=== PATIENT | female | born 1985 | race Caucasian/White ===

== ENCOUNTER 2021-11-01 20:07 | Emergency (ER) | payer SELFPAY ==
[2021-11-01 23:00] VITALS: BP 185/119; PULSE 78; RESP 16; TEMP 36.8; O2SAT 98; BMI 24.3
[2021-11-01 23:39] LABS: Urine Appearance Cloudy (CLEAR); Urine Color Yellow (Yellow); pH Urine 9 (5-7)
[2021-11-01 23:40] LABS: Add Urine Microscopic? YES; Bacteria Urine TRACE /hpf; Bilirubin Urine Neg (Negative); Blood Urine 2+ (Negative); Glucose Urine UA Norm (Normal); Ketones Urine 2+ (Negative); Leukocyte Esterase Urine Trace (Negative); Mucus Urine 1+ /hpf; Nitrate Urine Negative (Negative); Protein Urine Neg (Negative); RBC Urine 0-4 /hpf (0-2); Squamous Epithelial Cell Urine 0-4 /hpf (0-5); Sulfosalicylic Acid Urine Negative (Negative); Urobilinogen Urine Norm (Negative); WBC Urine 0-4 /hpf (0-5)
[2021-11-01 23:41] LABS: Add Urine Culture? No; Amorphous Sediment Urine 1+ /hpf
[2021-11-02 02:41] LABS: SARS Covid-2 Antigen Negative (Negative)
--- NOTE | 2021-11-02 03:35 | ED_ITS ---
Documented by User: Diallo Paredes MD 11/02/21 06:27 HPI - Nausea/Vomiting/Diarrhea General: Chief complaint: Nausea/Vomiting/Diarrhea Stated complaint: fever,n/v, shaking Time Seen by Provider: 11/02/21 03:35 History of Present Illness: Ms Jauregui is a 36-year-old lady with no significant past medical history presents to the emergency department due to ge neralized illness. She reports 1 week ago being seen and had a urgent care and being prescribed cefdinir for urinary tract infection. Since that time she has had continued daily fevers which have been in the 101 range associated with nausea, vomiting, and generalized malaise. She has been taking antibiotics however occasionally throws them up. Intensity symptoms moderate. Course has been worsening. No other specific changes in health, exacerbating, or alleviating factors identified. Onset (ago): day(s) Description of vomiting: watery Associated nausea: Yes Associated abdominal pain: Yes Severity: moderate Associated symtoms: Reports nausea Review of Systems General: Reports: 10 or more systems reviewed and unremarkable except in HPI and below GI: Reports: nausea PFSH ED PFSH: Medical History (Updated 11/02/21 @ 06:13 by Naima Anna MD) No significant past medical history Surgical History (Updated 11/02/21 @ 04:09 by Diallo Paredes MD) No significant past surgical history Physical Exam Const: COMMON NORMALS: alert GENERAL APPEARANCE: cooperative, well developed and ill appearing (Mildly) HENMT: COMMON NORMALS: normocephalic and atraumatic HEAD & SCALP: normocephalic and atraumatic Eye: COMMON NORMALS: conjunctivae normal CONJUNCTIVA: Yes conjunctivae normal SCLERA: sclerae normal Neck/C-Spine: COMMON NORMALS: supple GENERAL: Yes trachea midline Resp: COMMON NORMALS: clear to auscultation bilaterally EFFORT & INSPECTION: Yes able to speak in complete sentences AUSCULTATION: clear to auscultation bilaterally Cardio: COMMON NORMALS: regular rate and regular rhythm RATE: regular rate RHYTHM: regular rhythm GI: COMMON NORMALS: Soft to palpation PALPATION: Yes Soft to palpation and No Tenderness to palpation present (GI) Extremity: GENERAL: Yes normal exam except as noted and No edema Neuro: COMMON NORMALS: moves all extremities SENSORIUM/ORIENTATION: Yes alert and No Orientation impaired Psych: COMMON NORMALS: mental status grossly normal and Normal thought process present THOUGHT PROCESS: Normal thought process present Course Vital Signs: Vital signs: Vital Signs Temperature 98.3 F 11/01/21 23:00 Pulse Rate 100 11/02/21 06:27 Respiratory Rate 16 11/02/21 06:27 Blood Pressure 177/100 11/02/21 06:27 Pulse Oximetry 96 11/02/21 06:27 Oxygen Delivery Me thod 11/01/21 23:00 MDM - Nausea/Vomiting/Diarrhea Medical Decision Making 36-year-old female presenting with nausea and vomiting with fevers after previous diagnosis of UTI. Patient mildly ill on clinical appearance however vitally satisfactory. No leukocytosis. Mild evidence of dehydration and transaminitis of uncertain etiology. Urinalysis appears to be improving. Given transaminitis plan to proceed with ultrasound. Handed off to Dr. Anna pending completion of ED evaluation. Medical Records I reviewed the patient's medical records. Lab Data I reviewed the patient's lab results. : 11/02/21 04:35 11/02/21 04:35 Laboratory Results WBC 8.6 10^3/uL (4.0-10.0) 11/02/21 04:35 RBC 4.54 10^6/uL (4.1-5.3) 11/02/21 04:35 Hgb 15.5 g/dL (11.5-15.3) H 11/02/21 04:35 Hct 44.6 % (37.0-47.0) 11/02/21 04:35 MCV 98.2 fl (81-99) 11/02/21 04:35 MCH 34.1 pg (28.0-34.0) H 11/02/21 04:35 MCHC 34.8 g/dL (30.0-36.0) 11/02/21 04:35 RDW 13.5 % (12.1-15.1) 11/02/21 04:35 Plt Count 232 10^3/cmm (130-400) 11/02/21 04:35 MPV 9.8 fL (7.4-10.4) 11/02/21 04:35 Neut % (Auto) 63.4 % 11/02/21 04:35 Lymph % (Auto) 25.3 % 11/02/21 04:35 [place] % (Auto) 9.1 % 11/02/21 04:35 Eos % (Auto) 0.8 % 11/02/21 04:35 Baso % (Auto) 1.2 % 11/02/21 04:35 Neut # (Auto) 5.47 10^3/uL (1.8-7.7) 11/02/21 04:35 Lymph # (Auto) 2.2 10^3/uL (0.8-4.8) 11/02/21 04:35 [place] # (Auto) 0.8 10^3/uL (0.2-0.9) 11/02/21 04:35 Eos # (Auto) 0.1 10^3/uL (0.0-0.8) 11/02/21 04:35 Baso # (Auto) 0.1 10^3/uL (0.0-0.1) 11/02/21 04:35 Nucleated RBC % (auto) 0 % 11/02/21 04:35 Nucleated RBCs # 0.0 /100WBC 11/02/21 04:35 Sodium 138 mmol/L (136-145) 11/02/21 04:35 Potassium 3.4 mmol/L (3.5-5.1) L 11/02/21 04:35 Chloride 95 mmol/L (98-107) L 11/02/21 04:35 Carbon Dioxide 27 mmol/L (22-29) 11/02/21 04:35 Anion Gap 19.4 (5-19) H 11/02/21 04:35 BUN 7 mg/dL (6-20) 11/02/21 04:35 Creatinine 0.4 mg/dL (0.5-0.9) L 11/02/21 04:35 GFR Calculation 180.6 mL/min (90-130) H 11/02/21 04:35 Glucose 109 mg/dL (65-115) 11/02/21 04:35 Calculated Osmolality 285 mOsm/kg (285-295) 11/02/21 04:35 Calcium 9.5 mg/dL (8.5-10.5) 11/02/21 04:35 Total Bilirubin 1.2 mg/dL (0.15-1.2) 11/02/21 04:35 AST 89 U/L (0-32) H 11/02/21 04:35 ALT 85 U/L (0-33) H 11/02/21 04:35 Alkaline Phosphatase 82 U/L (35-105) 11/02/21 04:35 Total Protein 7.7 g/dL (6.6-8.7) 11/02/21 04:35 Albumin 4.4 g/dL (3.5-5.2) 11/02/21 04:35 Globulin 3.3 g/dL (1.3-4.6) 11/02/21 04:35 Lipase 62 U/L (13-60) H 11/02/21 04:35 Urine Color Yellow (Yellow) 11/01/21 23:04 Urine Appearance Cloudy (CLEAR) 11/01/21 23:04 Urine pH 9 (5-7) H 11/01/21 23:04 Ur Specific [place] 1.010 (1.005-1.030) 11/01/21 23:04 Urine Protein Neg (Negative) 11/01/21 23:04 Urine Glucose (UA) Norm (Normal) 11/01/21 23:04 Urine Ketones 2+ (Negative) H 11/01/21 23:04 Urine Blood 2+ (Negative) H 11/01/21 23:04 Urine Nitrate Negative (Negative) 11/01/21 23:04 Urine Bilirubin Neg (Negative) 11/01/21 23:04 Prot Sulfosalicylic Acd Negative (Negative) 11/01/21 23:04 Urine Urobilinogen Norm mg/dL (Negative) 11/01/21 23:04 Ur Leukocyte Esterase Trace (Negative) H 11/01/21 23:04 Urine RBC 0-4 /hpf (0-2) H 11/01/21 23:04 Urine WBC 0-4 /hpf (0-5) H 11/01/21 23:04 Ur Squamous Epith Cells 0-4 /hpf (0-5) H 11/01/21 23:04 Amorphous Sediment 1+ /hpf 11/01/21 23:04 Urine Bacteria Trace /hpf (NONE) 11/01/21 23:04 Urine Mucus 1+ /hpf 11/01/21 23:04 SARS-CoV-2 Ag (Rapid) Negative (Negative) 11/02/21 02:27 Discharge Plan Discharge Patient Disposition: Home Clinical Impression: Vomiting Qualifiers: Vomiting type: unspecified Nausea presence: with nausea Qualified Code(s): R11.2 - Nausea with vomiting, unspecified Condition: Stable Discharge Orders: Discharge ED (Routine); Ordered 11/02/21 Ordered By: Naima Anna Referrals: Claribel Verduzco PA-C [Primary Care Provider] - Discharge Diet: Advance as tolerated Discharge Activity: Resume usual activity Patient Instructions: Acute Nausea and Vomiting (ED) Coding Level of Care Code ED Concrete Products Machine Operator for Chg Fwd Exam Comprehensive Documented by User: Naima Anna MD 11/02/21 06:29 HPI - Nausea/Vomiting/Diarrhea General: Chief complaint: Nausea/Vomiting/Diarrhea Stated complaint: fever,n/v, shaking Time Seen by Provider: 11/02/21 03:35 PFS ED PFSH: Medical History (Updated 11/02/21 @ 06:13 by Naima Anna MD) No significant past medical history Surgical History (Updated 11/02/21 @ 04:09 by Diallo Paredes MD) No significant past surgical history Course 2 Vital Signs: Vital signs: Vital Signs Temperature 98.3 F 11/01/21 23:00 Pulse Rate 100 11/02/21 06:27 Respiratory Rate 16 11/02/21 06:27 Blood Pressure 177/100 11/02/21 06:27 Pulse Oximetry 96 11/02/21 06:27 Oxygen Delivery Me thod 11/01/21 23:00 MDM - Nausea/Vomiting/Diarrhea Medical Decision Making 36-year-old female presenting with nausea and vomiting with fevers after previous diagnosis of UTI. Patient mildly ill on clinical appearance however vitally satisfactory. No leukocytosis. Mild evidence of dehydration and transaminitis of uncertain etiology. Urinalysis appears to be improving. Given transaminitis plan to proceed with ultrasound. Handed off to Dr. Anna pending completion of ED evaluation. Patient presents here with vomiting she feels much improved here after fluids along with Zofran blood works normal ultrasound is normal she is stable for discharge she is to follow-up with PCP and return if worsening. Lab Data : 11/02/21 04:35 11/02/21 04:35 Laboratory Results WBC 8.6 10^3/uL (4.0-10.0) 11/02/21 04:35 RBC 4.54 10^6/uL (4.1-5.3) 11/02/21 04:35 Hgb 15.5 g/dL (11.5-15.3) H 11/02/21 04:35 Hct 44.6 % (37.0-47.0) 11/02/21 04:35 MCV 98.2 fl (81-99) 11/02/21 04:35 MCH 34.1 pg (28.0-34.0) H 11/02/21 04:35 MCHC 34.8 g/dL (30.0-36.0) 11/02/21 04:35 RDW 13.5 % (12.1-15.1) 11/02/21 04:35 Plt Count 232 10^3/cmm (130-400) 11/02/21 04:35 MPV 9.8 fL (7.4-10.4) 11/02/21 04:35 Neut % (Auto) 63.4 % 11/02/21 04:35 Lymph % (Auto) 25.3 % 11/02/21 04:35 [place] % (Auto) 9.1 % 11/02/21 04:35 Eos % (Auto) 0.8 % 11/02/21 04:35 Baso % (Auto) 1.2 % 11/02/21 04:35 Neut # (Auto) 5.47 10^3/uL (1.8-7.7) 11/02/21 04:35 Lymph # (Auto) 2.2 10^3/uL (0.8-4.8) 11/02/21 04:35 [place] # (Auto) 0.8 10^3/uL (0.2-0.9) 11/02/21 04:35 Eos # (Auto) 0.1 10^3/uL (0.0-0.8) 11/02/21 04:35 Baso # (Auto) 0.1 10^3/uL (0.0-0.1) 11/02/21 04:35 Nucleated RBC % (auto) 0 % 11/02/21 04:35 Nucleated RBCs # 0.0 /100WBC 11/02/21 04:35 Sodium 138 mmol/L (136-145) 11/02/21 04:35 Potassium 3.4 mmol/L (3.5-5.1) L 11/02/21 04:35 Chloride 95 mmol/L (98-107) L 11/02/21 04:35 Carbon Dioxide 27 mmol/L (22-29) 11/02/21 04:35 Anion Gap 19.4 (5-19) H 11/02/21 04:35 BUN 7 mg/dL (6-20) 11/02/21 04:35 Creatinine 0.4 mg/dL (0.5-0.9) L 11/02/21 04:35 GFR Calculation 180.6 mL/min (90-130) H 11/02/21 04:35 Glucose 109 mg/dL (65-115) 11/02/21 04:35 Calculated Osmolality 285 mOsm/kg (285-295) 11/02/21 04:35 Calcium 9.5 mg/dL (8.5-10.5) 11/02/21 04:35 Total Bilirubin 1.2 mg/dL (0.15-1.2) 11/02/21 04:35 AST 89 U/L (0-32) H 11/02/21 04:35 ALT 85 U/L (0-33) H 11/02/21 04:35 Alkaline Phosphatase 82 U/L (35-105) 11/02/21 04:35 Total Protein 7.7 g/dL (6.6-8.7) 11/02/21 04:35 Albumin 4.4 g/dL (3.5-5.2) 11/02/21 04:35 Globulin 3.3 g/dL (1.3-4.6) 11/02/21 04:35 Lipase 62 U/L (13-60) H 11/02/21 04:35 Urine Color Yellow (Yellow) 11/01/21 23:04 Urine Appearance Cloudy (CLEAR) 11/01/21 23:04 Urine pH 9 (5-7) H 11/01/21 23:04 Ur Specific [place] 1.010 (1.005-1.030) 11/01/21 23:04 Urine Protein Neg (Negative) 11/01/21 23:04 Urine Glucose (UA) Norm (Normal) 11/01/21 23:04 Urine Ketones 2+ (Negative) H 11/01/21 23:04 Urine Blood 2+ (Negative) H 11/01/21 23:04 Urine Nitrate Negative (Negative) 11/01/21 23:04 Urine Bilirubin Neg (Negative) 11/01/21 23:04 Prot Sulfosalicylic Acd Negative (Negative) 11/01/21 23:04 Urine Urobilinogen Norm mg/dL (Negative) 11/01/21 23:04 Ur Leukocyte Esterase Trace (Negative) H 11/01/21 23:04 Urine RBC 0-4 /hpf (0-2) H 11/01/21 23:04 Urine WBC 0-4 /hpf (0-5) H 11/01/21 23:04 Ur Squamous Epith Cells 0-4 /hpf (0-5) H 11/01/21 23:04 Amorphous Sediment 1+ /hpf 11/01/21 23:04 Urine Bacteria Trace /hpf (NONE) 11/01/21 23:04 Urine Mucus 1+ /hpf 11/01/21 23:04 SARS-CoV-2 Ag (Rapid) Negative (Negative) 11/02/21 02:27 Discharge Plan Discharge Patient Disposition: Home Clinical Impression: Vomiting Qualifiers: Vomiting type: unspecified Nausea presence: with nausea Qualified Code(s): R11.2 - Nausea with vomiting, unspecified Condition: Stable Discharge Orders: Discharge ED (Routine); Ordered 11/02/21 Ordered By: Naima Anna Referrals: Claribel Verduzco PA-C [Primary Care Provider] - Discharge Diet: Advance as tolerated Discharge Activity: Resume usual activity Patient Instructions: Acute Nausea and Vomiting (ED) Coding Level of Care Code ED Concrete Products Machine Operator for Marcelo Fwd Exam Comprehensive
[2021-11-02] MEDS: ondansetron 2 mg/ML SDV 2 mL 4 MG IVP (04:31)
[2021-11-02] MEDS: lactated ringers 1,000 ML 999 ML IV (04:31)
[2021-11-02 04:32] VITALS: BP 141/92; RESP 16
[2021-11-02 04:40] LABS: Basophils # 0.1 10^3/uL (0.0-0.1); Basophils % 1.2 %; Eosinophils # 0.1 10^3/uL (0.0-0.8); Eosinophils % 0.8 %; Hematocrit 44.6 % (37.0-47.0); Hemoglobin 15.5 g/dL (11.5-15.3); Lymphocytes # 2.2 10^3/uL (0.8-4.8); Lymphocytes % 25.3 %; Mean Corpuscular HGB Conc 34.8 g/dL (30.0-36.0); Mean Corpuscular Hemoglobin 34.1 pg (28.0-34.0); Mean Corpuscular Volume 98.2 fl (81-99); Mean Platelet Volume 9.8 fL (7.4-10.4); Monocytes # 0.8 10^3/uL (0.2-0.9); Monocytes % 9.1 %; Neutrophils # 5.47 10^3/uL (1.8-7.7); Neutrophils % 63.4 %; Nucleated Red Blood Cells % 0 %; Platelet Count 232 10^3/cmm (130-400); Red Blood Count 4.54 10^6/uL (4.1-5.3); Red Cell Distribution Width 13.5 % (12.1-15.1); White Blood Count 8.6 10^3/uL (4.0-10.0)
[2021-11-02 05:11] LABS: Alanine Aminotransferase 85 U/L (0-33); Albumin Level 4.4 g/dL (3.5-5.2); Alkaline Phosphatase 82 U/L (35-105); Anion Gap 19.4 (5-19); Aspartate Amino Transferase 89 U/L (0-32); Blood Urea Nitrogen 7 mg/dL (6-20); Calcium 9.5 mg/dL (8.5-10.5); Carbon Dioxide 27 mmol/L (22-29); Chloride 95 mmol/L (98-107); Globulin 3.3 g/dL (1.3-4.6); Glomerular Filtration Rate 180.6 mL/min (90-130); Glucose 109 mg/dL (65-115); Osmolality Calculated 285 mOsm/kg (285-295); Potassium 3.4 mmol/L (3.5-5.1); Sodium 138 mmol/L (136-145); Total Bilirubin 1.2 mg/dL (0.15-1.2); Total Protein 7.7 g/dL (6.6-8.7)
[2021-11-02 05:16] VITALS: BP 168/97; RESP 18
[2021-11-02 05:21] LABS: Creatinine Clr Calc Pharmacy 206.7885
--- NOTE | 2021-11-02 05:27 | USR_ITS ---
PROCEDURE INFORMATION: Exam: US Abdomen Complete Exam date and time: 11/02/2021 5:53 AM Age: 36 years old Clinical indication: Nausea and vomiting; Additional info: Ruq, biliary, n/v/transaminitis TECHNIQUE: Imaging protocol: Real-time ultrasound of the abdomen with image documentation. Complete exam. COMPARISON: No relevant prior studies available. FINDINGS: Liver: The liver is enlarged with diffusely increased echogenicity, most commonly seen in hepatic steatosis, though other forms of parenchymal liver disease could have a similar appearance. This limits evaluation for subtle isoechoic masses but no masses are seen. Patent main portal vein with normal direction of flow. Gallbladder: Normal. No gallstones. There is no gallbladder wall thickening. Biliary ducts: Normal. No stones. No dilation. Pancreas: Visualized pancreas is unremarkable. Right kidney: Normal. No mass. No hydronephrosis. Left kidney: Normal. No mass. No hydronephrosis. Spleen: Normal. No splenomegaly. Aorta: Normal. No aneurysm. Inferior vena cava: Normal. US/US abdomen complete* [id number] IMPRESSION: Hyperechoic liver, which can be seen with fatty infiltration or hepatocellular disease.
[2021-11-02 05:48] LABS: Lipase 62 U/L (13-60)
[2021-11-02 06:27] VITALS: BP 177/100; PULSE 100; RESP 16; O2SAT 96
--- NOTE | 2021-11-02 10:36 | DCPLANNER ---
Addendum entered by Maral Zuñiga 11/03/21 08:53: qa manager received the following message from the general surgery clinic regarding follow up appointment: patient aware of 100 payment towards total bill . I gave Rochelle her information as well as gave patient Rochelle's information to set up FA. She is aware she will need to speak to them prior to us scheduling any procedure On 11/02/21 @ 14:39 Jennifer Yeh Wrote To [employer] Front Off pt is also self pay CHERRY Original Note: qa manager had message to schedule a follow up appointment for patient with general surgery. qa manager sent patients information to the front office staff at general surgery. Patients information will be printed and reviewed. Clinic will call patient with appointment information.
== END 2021-11-02 06:28 | disposition home or self-care (01) ==
PROVIDERS: Emergency Medicine; Emergency Provider Emergency Medicine; PCP Physician Assistant
DX: R11.2 Nausea with vomiting, unspecified (principal); E86.0 Dehydration; R74.01 Elevation of levels of liver transaminase levels; N39.0 Urinary tract infection, site not specified
CPT/HCPCS: 76700; 80053; 81001; 83690; 85025; 87426; 96361; 96374; 99285; J2405

== ENCOUNTER 2021-11-23 11:37 | Emergency (ER) | payer SELFPAY ==
[2021-11-23 12:05] VITALS: BP 208/103; PULSE 76; RESP 18; TEMP 37; O2SAT 99; BMI 23.8
[2021-11-23 12:38] LABS: Basophils # 0.1 10^3/uL (0.0-0.1); Eosinophils % 0.5 %; Hematocrit 48.8 % (37.0-47.0); Hemoglobin 16.9 g/dL (11.5-15.3); Lymphocytes # 1.3 10^3/uL (0.8-4.8); Mean Corpuscular HGB Conc 34.6 g/dL (30.0-36.0); Mean Corpuscular Hemoglobin 34.8 pg (28.0-34.0); Mean Corpuscular Volume 100.4 fl (81-99); Mean Platelet Volume 10.5 fL (7.4-10.4); Monocytes # 0.5 10^3/uL (0.2-0.9); Monocytes % 6.8 %; Neutrophils # 5.99 10^3/uL (1.8-7.7); Neutrophils % 75.6 %; Nucleated Red Blood Cells % 0 %; Platelet Count 160 10^3/cmm (130-400); Red Blood Count 4.86 10^6/uL (4.1-5.3); Red Cell Distribution Width 13.2 % (12.1-15.1); White Blood Count 7.9 10^3/uL (4.0-10.0)
[2021-11-23 12:59] LABS: Alanine Aminotransferase 164 U/L (0-33); Albumin Level 5.1 g/dL (3.5-5.2); Alkaline Phosphatase 83 U/L (35-105); Anion Gap 17.5 (5-19); Aspartate Amino Transferase 174 U/L (0-32); Blood Urea Nitrogen 8 mg/dL (6-20); Calcium 10.3 mg/dL (8.5-10.5); Carbon Dioxide 26 mmol/L (22-29); Chloride 96 mmol/L (98-107); Globulin 3.9 g/dL (1.3-4.6); Glomerular Filtration Rate 180.6 mL/min (90-130); Glucose 100 mg/dL (65-115); Osmolality Calculated 280 mOsm/kg (285-295); Potassium 3.5 mmol/L (3.5-5.1); Sodium 136 mmol/L (136-145); Total Bilirubin 2.7 mg/dL (0.15-1.2)
[2021-11-23 14:33] LABS: Glucose Urine UA Norm (Normal); Ketones Urine 1+ (Negative); Protein Urine 1+ (Negative); Urine Appearance Hazy (CLEAR); Urine Color Yellow (Yellow); pH Urine 5 (5-7)
[2021-11-23 14:34] LABS: Add Urine Culture? Yes; Add Urine Microscopic? YES; Bacteria Urine 4+ /hpf; Bilirubin Urine 1+ (Negative); Blood Urine 2+ (Negative); Leukocyte Esterase Urine 1+ (Negative); Nitrate Urine Positive (Negative); RBC Urine 0-4 /hpf (0-2); Squamous Epithelial Cell Urine 0-4 /hpf (0-5); Urobilinogen Urine 1 mg/dL (Negative); WBC Urine 15-25 /hpf (0-5)
[2021-11-23 14:51] LABS: Anion Gap 17.6 (5-19); Blood Urea Nitrogen 8 mg/dL (6-20); Carbon Dioxide 26 mmol/L (22-29); Chloride 95 mmol/L (98-107); Glomerular Filtration Rate 139.6 mL/min (90-130); Glucose 114 mg/dL (65-115); Osmolality Calculated 279 mOsm/kg (285-295); Potassium 3.6 mmol/L (3.5-5.1); Sodium 135 mmol/L (136-145)
[2021-11-23 15:00] VITALS: BP 157/98; PULSE 72; O2SAT 95
--- NOTE | 2021-11-23 15:03 | W.ED.FEMALGU ---
HPI - Female Genitourinary General: Chief complaint: Urogenital-Female Stated complaint: High BP, [place] Time Seen by Provider: 11/23/21 14:19 Source: patient Mode of arrival: ambulatory Limitations: no limitations History of Present Illness: 36-year-old female presents emergency room with complaints of elevated blood pressure and cystitis. Patiently currently on metoprolol 50 mg daily and lisinopril 5 mg daily started lisinopril a couple of weeks ago she still getting very widely fluctuating blood pressure readings majority of them are high at home. She showed me several readings she gotten on her home blood pressure monitor. Some of them seemed erroneous as the pulse pressures were rather narrow. She initially arrived here blood pressure was 208/103, after some time resting her blood pressures down to 101 58/90. She is also complaining a little bit of dysuria. She has had that for over a week. Couple weeks ago she was seen in had a course of p.o. ciprofloxacin for cystitis but her symptoms have persisted. No fever no flank pain MD elicited complaint: dysuria Onset (ago): hour(s) Severity: mild Quality of pain: cramping Consistency: constant Urinary symptoms: Dysuria Exacerbating factors: none Relieving factors: none Associated symptoms: Deny abdominal pain, short of breath, fevers/chills, headache(s), nausea, rash, seizures, syncope or weakness Treatment prior to arrival: none Date of Last Menstrual Period: 11/14/21 Review of Systems Const: Denies: fever(s), chills, body aches, change in appetite, fatigue or malaise ENMT: Denies: throat pain, ear or mastoid pain, nasal discharge or nasal congestion Card: Denies: chest pain, palpitations, irregular heart rhythm or syncope Resp: Denies: dyspnea, productive cough or non-productive cough GI: Denies: abdominal pain or nausea : Denies: flank pain, difficulty voiding, dysuria, urinary frequency or urinary urgency Musc: Denies: neck pain or back pain Skin/Breast: Denies: rash or pruritus Neuro: Denies: headache(s), numbness in extremities or weakness in extremities PFSH ED PFSH: Medical History No significant past medical history Surgical History No significant past surgical history Social History (Updated 12/05/21 @ 18:36 by Jaydon Luque DO) Smoking and tobacco status: never smoked Alcohol intake: never Female Reproductive History: Date of last menstrual period: 11/14/21 Physical Exam Const: COMMON NORMALS: no acute distress GENERAL APPEARANCE: cooperative and comfortable ORIENTATION/CONSCIOUSNESS: Yes awake, Yes oriented to person, Yes oriented to place and Yes oriented to time HENMT: COMMON NORMALS: normocephalic, atraumatic and hearing grossly normal bilaterally HEAD & SCALP: normocephalic and atraumatic Resp: COMMON NORMALS: normal respiratory effort, No retractions, No use of accessory muscles and clear to auscultation bilaterally AUSCULTATION: clear to auscultation bilaterally Cardio: COMMON NORMALS: regular rate, regular rhythm and No murmurs present (Cardio) RATE: regular rate RHYTHM: regular rhythm GI: COMMON NORMALS: Soft to palpation and No hepatosplenomegaly present AUSCULTATION: Yes normoactive bowel sounds PALPATION: Yes Soft to palpation, No Tenderness to palpation present (GI), No Guarding due to palpation present (GI) and Yes No hepatosplenomegaly present Extremity: COMMON NORMALS: normal to inspection, capillary refill normal, no clubbing, cyanosis or edema, no calf tenderness and no pedal edema Neuro: SENSORIUM/ORIENTATION: Yes oriented to person, Yes oriented to place and Yes oriented to time Skin: COMMON NORMALS: no rashes or lesions noted GENERAL SKIN EXAM: no rashes or lesions noted Course Vital Signs: Vital signs: Vital Signs Temperature 98.6 F 11/23/21 12:05 Pulse Rate 83 11/23/21 16:23 Respiratory Rate 18 11/23/21 12:05 Blood Pressure 154/103 11/23/21 16:23 Pulse Oximetry 95 11/23/21 16:23 Oxygen Delivery Me thod 11/23/21 15:30 MDM - Female Medical Decision Making No evidence of nephrolithiasis or pyelonephritis. Continue previously prescribed antibiotics to complete the course of treatment for cystitis. Start lisinopril for blood pressure follow-up with primary care within a week to reevaluate blood pressure. Differential Diagnosis Likely abdominal pain, acute appendicitis, calculus of kidney, constipation, diverticulitis, endometriosis, gastroenteritis, pancreatitis and small bowel obstruction Medical Records I reviewed the patient's medical records. Lab Data I reviewed the patient's lab results. : 11/23/21 12:29 11/23/21 14:30 Laboratory Results WBC 7.9 10^3/uL (4.0-10.0) 11/23/21 12: RBC 4.86 10^6/uL (4.1-5.3) 11/23/21 12: Hgb 16.9 g/dL (11.5-15.3) H 11/23/21 12: Hct 48.8 % (37.0-47.0) H 11/23/21 12: MCV 100.4 fl (81-99) H 11/23/21 12: MCH 34.8 pg (28.0-34.0) H 11/23/21 12: MCHC 34.6 g/dL (30.0-36.0) 11/23/21 12: RDW 13.2 % (12.1-15.1) 11/23/21 12: Plt Count 160 10^3/cmm (130-400) 11/23/21 12: MPV 10.5 fL (7.4-10.4) H 11/23/21 12: Neut % (Auto) 75.6 % 11/23/21 12: Lymph % (Auto) 16.0 % 11/23/21 12: [place] % (Auto) 6.8 % 11/23/21 12: Eos % (Auto) 0.5 % 11/23/21 12: Baso % (Auto) 1.0 % 11/23/21 12:29 Neut # (Auto) 5.99 10^3/uL (1.8-7.7) 11/23/21 12: Lymph # (Auto) 1.3 10^3/uL (0.8-4.8) 11/23/21 12: [place] # (Auto) 0.5 10^3/uL (0.2-0.9) 11/23/21 12:29 Eos # (Auto) 0.0 10^3/uL (0.0-0.8) 11/23/21 12:29 Baso # (Auto) 0.1 10^3/uL (0.0-0.1) 11/23/21 12:29 Nucleated RBC % (auto) 0 % 11/23/21 12:29 Nucleated RBCs # 0.0 /100WBC 11/23/21 12:29 Sodium 135 mmol/L (136-145) L 11/23/21 14:30 Potassium 3.6 mmol/L (3.5-5.1) 11/23/21 14:30 Chloride 95 mmol/L (98-107) L 11/23/21 14:30 Carbon Dioxide 26 mmol/L (22-29) 11/23/21 14:30 Anion Gap 17.6 (5-19) 11/23/21 14:30 BUN 8 mg/dL (6-20) 11/23/21 14:30 Creatinine 0.5 mg/dL (0.5-0.9) 11/23/21 14:30 GFR Calculation 139.6 mL/min (90-130) H 11/23/21 14:30 Glucose 114 mg/dL (65-115) 11/23/21 14:30 Calculated Osmolality 279 mOsm/kg (285-295) L 11/23/21 14:30 Calcium 10.0 mg/dL (8.5-10.5) 11/23/21 14:30 Total Bilirubin 2.7 mg/dL (0.15-1.2) H 11/23/21 12:29 AST 174 U/L (0-32) H 11/23/21 12:29 ALT 164 U/L (0-33) H 11/23/21 12:29 Alkaline Phosphatase 83 U/L (35-105) 11/23/21 12:29 Total Protein 9.0 g/dL (6.6-8.7) H 11/23/21 12:29 Albumin 5.1 g/dL (3.5-5.2) 11/23/21 12:29 Globulin 3.9 g/dL (1.3-4.6) 11/23/21 12:29 Urine Color Yellow (Yellow) 11/23/21 13:40 Urine Appearance Hazy (CLEAR) A 11/23/21 13:40 Urine pH 5 (5-7) 11/23/21 13:40 Ur Specific [place] 1.020 (1.005-1.030) 11/23/21 13:40 Urine Protein 1+ (Negative) H 11/23/21 13:40 Urine Glucose (UA) Norm (Normal) 11/23/21 13:40 Urine Ketones 1+ (Negative) H 11/23/21 13:40 Urine Blood 2+ (Negative) H 11/23/21 13:40 Urine Nitrate Positive (Negative) H 11/23/21 13:40 Urine Bilirubin 1+ (Negative) H 11/23/21 13:40 Urine Urobilinogen 1 mg/dL (Negative) H 11/23/21 13:40 Ur Leukocyte Esterase 1+ (Negative) H 11/23/21 13:40 Urine RBC 0-4 /hpf (0-2) H 11/23/21 13:40 Urine WBC 15-25 /hpf (0-5) H 11/23/21 13:40 Ur Squamous Epith Cells 0-4 /hpf (0-5) H 11/23/21 13:40 Amorphous Sediment Not Reportable 11/23/21 13:40 Urine Bacteria 4+ /hpf (NONE) H 11/23/21 13:40 Discharge Plan Discharge Patient Disposition: Home Clinical Impression: Hypertension, Urinary tract infection Condition: Stable Prescriptions: Changed lisinopril 5 mg Tablet 10 mg PO QAM Qty: 60 0RF No Action metoprolol succinate 100 mg tablet extended release 24 hr 50 mg PO QAM fluoxetine 20 mg tablet 20 mg PO QAM Discharge Orders: Discharge ED (Routine); Ordered 11/23/21 Ordered By: Jaydon Luque Referrals: Claribel Verduzco PA-C [Primary Care Provider] - Discharge Diet: Usual diet Discharge Activity: Resume usual activity Activity Restrictions/Additional Instructions: Increase lisinopril to 10 mg daily 10 days use of Augmentin. Follow-up with your doctor within the next week. Coding Level of Care Code ED Athletic Events Scorer for Marcelo Fwd Exam Detailed
[2021-11-23 15:30] VITALS: BP 154/102; PULSE 69; O2SAT 94
[2021-11-23 16:23] VITALS: BP 154/103; PULSE 83; O2SAT 95
== END 2021-11-23 16:15 | disposition home or self-care (01) ==
PROVIDERS: Emergency Provider Family Medicine; PCP Physician Assistant
DX: I10 Essential (primary) hypertension (principal); N39.0 Urinary tract infection, site not specified
CPT/HCPCS: 36415; 80048; 80053; 81001; 85025; 87077; 87086; 87186; 99283